=== PATIENT | female | born 1965 | race Hispanic/Latino ===

== ENCOUNTER 2017-05-12 10:51 | Outpatient (CLI) | payer OTHER ==
--- NOTE | 2017-05-12 13:37 | Mammography Report ---
Screening implant mammogram: Routine views as well as displacement images are obtained and compared to comparable exam in 2014. Submuscular saline implants are intact. There is a heterogeneously dense fibroglandular pattern which is symmetric in distribution. The left retroareolar region appears somewhat different in the lateral projection than prior exam. This may be projectional. CAD used. Impression: Possible left retroareolar asymmetry. Recommendation: Additional compression views of the left breast. Ultrasound, if needed. BI-RADS CATEGORY: 0 = Needs additional imaging evaluation ACR BI-RADS MAMMOGRAPHIC CODES: 0 = Needs additional imaging evaluation; 1 = Negative; 2 = Benign; 3 = Probably benign; 4 = Suspicious; 5 = Malignant; 6 = Known biopsy-proven malignancy COMMENT: 1. Dense breast tissue, i.e., adenosis, fibrocystic changes, etc., may obscure an underlying neoplasm. 2. Approximately 10% of cancers are not detected with mammography. 3. A negative mammography report should not delay biopsy if a clinically suspicious mass is present. The
== END 2017-05-12 10:52 | disposition home or self-care (01) ==
LOC: SPVWC 10:51
PROVIDERS: ATTEND Obstetrics & Gynecology
DX: Z12.31 Encounter for screening mammogram for malignant neoplasm of breast (principal)
CPT/HCPCS: 77067; G0202

== ENCOUNTER 2017-05-27 14:12 | Outpatient (CLI) | payer OTHER ==
--- NOTE | 2017-05-27 13:53 | Mammography Report ---
LEFT DIGITAL DIAGNOSTIC MAMMOGRAM : 05/27/17 11:30:00 CLINICAL: Recalled for asymmetry. COMPARISON:05/12/17 screening FINDINGS: An implant displaced MLO spot compression view demonstrates satisfactory effacement of asymmetry. IMPRESSION: Negative Mammogram. BI-RADS CATEGORY: 1 - - Negative RECOMMENDATION: Routine mammographic screening in one year. ACR BI-RADS MAMMOGRAPHIC CODES: 0 = Needs additional imaging evaluation; 1 = Negative; 2 = Benign; 3 = Probably benign; 4 = Suspicious; 5 = Malignant; 6 = Known biopsy-proven malignancy COMMENT: 1. Dense breast tissue, i.e., adenosis, fibrocystic changes, etc., may obscure an underlying neoplasm. 2. Approximately 10% of cancers are not detected with mammography. 3. A negative mammography report should not delay biopsy if a clinically suspicious mass is present. COMMENT: Patient follow-up letters are generated via our [employer] application.
== END 2017-05-27 14:13 | disposition home or self-care (01) ==
LOC: SPVWC 14:12
PROVIDERS: ATTEND Obstetrics & Gynecology
DX: R92.8 Other abnormal and inconclusive findings on diagnostic imaging of breast (principal); Z98.82 Breast implant status
CPT/HCPCS: G0206-LT

== ENCOUNTER 2020-03-08 10:14 | Outpatient (CLI) | payer OTHER ==
--- NOTE | 2020-03-09 08:10 | Mammography Report ---
DIGITAL SCREENING MAMMOGRAM WITH CAD, 03/08/2020 INDICATION: Routine screening mammography. TECHNIQUE: Digital bilateral 2D mammography was obtained in the craniocaudal and mediolateral obliq ue projections. This examination was interpreted with the benefit of Computer-Aided Detection analysi s. COMPARISON: 05/20/2014 FINDINGS: Breast Density: The breasts are heterogeneously dense, which may obscure small masses. There is no evidence of dominant mass, suspicious calcifications or architectural distortion in eithe r breast. Bilateral saline retropectoral breast implants are present. Overall, no interval change. IMPRESSION: No evidence of malignancy. Follow up recommendation: Routine yearly BI-RADS Category 2: Benign. A "normal" or negative report should not discourage follow up or biopsy of a clinically significant f inding. A written summary of these findings will be mailed to the patient. The patient will be entered into a mammography reporting system which will generate a reminder letter for the patient's next appointmen t at the appropriate interval. The [employer] recommends yearly mammograms starting at age 40 and continuing as l fred as a woman is in good health. Breast MRI is recommended for women with an approximate 20-25% or greater lifetime risk of breast cancer, including women with a strong family history of breast or ova marzena cancer or who have been treated for Hodgkin's disease. Signer Name: Enid Washington MD Signed: 03/09/2020 8:06 AM Workstation Name: [id number]
== END 2020-03-08 10:15 | disposition home or self-care (01) ==
LOC: SPVWC 10:14
PROVIDERS: ATTEND Physician Assistant Medical
DX: Z12.31 Encounter for screening mammogram for malignant neoplasm of breast (principal)
CPT/HCPCS: 77067